=== PATIENT | male | born 1945 | race Caucasian/White ===

== ENCOUNTER 2019-08-26 18:41 | Emergency (ER) | payer MEDICARE ==
[2019-08-26 18:51] VITALS: BP 167/83
[2019-08-26] MEDS ORDERED: HYDROcod/ACETAM 5/325 MG TABLET PO STA (19:11)
[2019-08-26] MEDS ORDERED: TETANUS/DIPHTHERIA/PERTUSSIS 0.5 ML SYRINGE IM ONE (19:11)
--- NOTE | 2019-08-26 19:12 | ED Physician Documentation ---
PD HPI UPPER EXT INJURY - Stated complaint Stated Complaint: ELBOW INJURY,GLF - Chief complaint Chief Complaint: Ext Problem - History obtained from History obtained from: Patient (Trip and fall landing on his right elbow, he also has some scrapes on the left hand and left knee but those do not hurt at all. His tetanus is unknown. Denies head or neck injury. No loss of consciousness. This accident happened about 4 PM today.) Review of Systems Constitutional: reports: Reviewed and negative Cardiac: reports: Reviewed and negative Respiratory: reports: Reviewed and negative PD PAST MEDICAL HISTORY - Past Medical History Past Medical History: Yes Psych: Depression, ADD/ADHD - Past Surgical History Past Surgical History: Yes - Present Medications Home Medications: Ambulatory Orders Medication Instructions Recorded Confirmed Methylphenidate HCl 10 mg 09/03/14 09/15/14 [Methylphenidate ER] HYDROcod/ACETAM 5/325 [[place] 5/325] 1 - 2 ea PO Q6H PRN #15 tablet 01/01/16 Hydrocodone/Acetaminophen 1 - 2 each PO Q6H PRN #14 tablet 08/26/19 [Hydrocodon-Acetaminophen 5-325] - Allergies Allergies/Adverse Reactions: Allergies Allergy/AdvReac Type Severity Reaction Status Date / Time No Known Drug Allergies Allergy Verified 08/26/19 18:43 - Social History Does the pt smoke?: No Smoking Status: Never smoker Does the pt drink ETOH?: Yes Does the pt have substance abuse?: No - Immunizations Immunizations are current?: Yes Immunizations: TDAP current <10years - POLST Patient has POLST: No PD ED PE NORMAL - Vitals Vital signs reviewed: Yes - General General: Alert and oriented X 3, No acute distress - HEENT HEENT: PERRL, EOMI - Neck Neck: Supple, no meningeal sign, No bony TTP - Extremities Extremities: Other (Quite tender over the right olecranon, unable to extend it, but can bend it. Some shallow scrapes on the medial left hand and left knee without bony tenderness there.) - Neuro Neuro: Alert and oriented X 3, Normal speech Results - Vitals Vitals: Vital Signs - 24 hr 08/26/19 18:43 Temperature 36.2 C L Heart Rate 66 Respiratory 16 Rate Blood Pressure 167/83 H O2 Saturation 98 Oxygen O2 Source Room air - Rads (name of study) R elbow Radiology: EMP read contemporaneously (Nondisplaced right radial head fracture) PD MEDICAL DECISION MAKING - ED course ED course: He was ordered a sling and fitted for it but refused it based on potential cost Departure - Departure Disposition: 01 Home, Self Care Clinical Impression: Multiple abrasions, Fall from ground level Right radial head fracture Qualifiers: Encounter type: initial encounter Fracture type: closed Fracture alignment: nondisplaced Qualified Code(s): S52.124A - Nondisplaced fracture of head of right radius, initial encounter for closed fracture Condition: Good Record reviewed to determine appropriate education?: Yes Instructions: ED Fx Radial Head Follow-Up: [facility] [Provider Group] - Within 1 week Prescriptions: Hydrocodone/Acetaminophen [Hydrocodon-Acetaminophen 5-325] 1 - 2 each PO Q6H PRN #14 tablet PRN Reason: pain Comments: Note for your records that we updated your tetanus today. That should be good for 10 years unless you have a particularly bad wound. For the scrapes you can just wash with soap and water and keep them covered with a little bacitracin ointment which is available [id number] and a Band-Aid. The radial head fracture, these always heal up really well. You should follow-up with the orthopedic surgeon in about a week. Until then wear the sling for comfort. You can start gentle range of motion exercises pretty soon but do not do anything too strenuous. Call the orthopedics office tomorrow for an appointment.
--- NOTE | 2019-08-26 20:13 | XRAY Report ---
Reason: injury Procedure Date: 08/26/2019 Accession Number: [id number] / [id number] Procedure: XR - Elbow 3 View RT CPT Code: Final Report FULL RESULT: EXAM: RIGHT ELBOW RADIOGRAPHY. EXAM DATE: 08/26/2019 07:37 PM. CLINICAL HISTORY: Injury. COMPARISON: None. TECHNIQUE: 3 views. FINDINGS: Bones: Mild cortical irregularity at medial aspect of radial head, may reflect a nondisplaced fracture. Joints: A small right elbow joint effusion with elevated fat pad. Soft Tissues: Normal. No soft tissue swelling. IMPRESSION: Mild cortical irregularity at medial aspect of radial head, may reflect a nondisplaced fracture. A small elbow joint effusion. RADIA
[2019-08-26] MEDS ORDERED: HYDROcod/ACET 5/325 Prepack 4 PO STA (20:15)
== END 2019-08-26 20:26 | disposition home or self-care (01) ==
LOC: ED 18:41
DX: S52.124A Nondisplaced fracture of head of right radius, initial encounter for closed fracture (principal); S60.512A Abrasion of left hand, initial encounter; S80.212A Abrasion, left knee, initial encounter; W01.0XXA Fall on same level from slipping, tripping and stumbling without subsequent striking against object, initial encounter; Y93.01 Activity, walking, marching and hiking; Z23 Encounter for immunization
CPT/HCPCS: 73080; 90471; 90715; 99283; 99284; A9270

== ENCOUNTER 2020-01-07 16:05 | Outpatient (CLI) | payer MEDICARE | END 2020-01-07 16:06 | disposition home or self-care (01) | LOC: COV 16:05 | PROVIDERS: ATTEND Family Medicine | DX: R05 Cough (principal); M79.10 Myalgia, unspecified site; R53.83 Other fatigue; J02.9 Acute pharyngitis, unspecified; R09.81 Nasal congestion; Z20.828 Contact with and (suspected) exposure to other viral communicable diseases ==

== ENCOUNTER 2020-06-29 15:27 | Outpatient (CLI) | payer MEDICARE ==
--- NOTE | 2020-06-29 16:25 | XRAY Report ---
PROCEDURE: Lumbar Spine 2 View INDICATIONS: BACK PAIN, MYALGIA TECHNIQUE: 2 views of the lumbar spine were acquired. COMPARISON: None. FINDINGS: Bones: 5 ekh-tha-blieldp vertebrae are present. Multilevel disc space narrowing and endplate osteop hyte formation, worst at L5-S1, indicating degenerative disc disease. Facet hypertrophy throughout th e mid and lower lumbar spine. There is normal bony alignment. No vertebral body compression fracture s. No suspicious bony lesions. Soft tissues: Overlying bowel gas pattern is normal. No suspicious soft tissue calcifications. IMPRESSION: Multilevel degenerative disc and facet disease. No acute fracture. No osseous lesion. If symptoms and/or clinical suspicion for pathology continue, further assessment with repeat plain film s, or advanced imaging (e.g., CT, MRI, or bone scan) is recommended for further assessment. Reviewed by: Peewee Elizalde MD on 06/29/2020 4:24 PM PDT Approved by: Peewee Elizalde MD on 06/29/2020 4:24 PM PDT Station ID: [id number]
== END 2020-06-29 15:28 | disposition home or self-care (01) ==
LOC: DI 15:27
PROVIDERS: ATTEND Internal Medicine
DX: M47.816 Spondylosis without myelopathy or radiculopathy, lumbar region (principal); M51.36 Other intervertebral disc degeneration, lumbar region

== ENCOUNTER 2020-07-28 11:41 | Outpatient (CLI) | payer MEDICARE ==
[2020-07-28 12:08] LABS: BASOPHILS % (AUTO) 0.3 %; EOSINOPHILS # (AUTO) 0.1 10^3/uL (0.0-0.7); EOSINOPHILS % (AUTO) 1.2 %; HCT - HEMATOCRIT 42.9 % (42.0-52.0); HGB - HEMOGLOBIN 14.9 g/dL (14.0-18.0); LYMPHOCYTES # (AUTO) 1.2 10^3/uL (1.5-3.5); LYMPHOCYTES % (AUTO) 19.3 %; MEAN CORPUSCULAR HEMOGLOBIN 30.3 pg (27.0-31.0); MEAN CORPUSCULAR HGB CONC 34.7 g/dL (32.0-36.0); MEAN CORPUSCULAR VOLUME 87.4 fL (80.0-94.0); MEAN PLATELET VOLUME 9.5 fL (7.4-11.4); MONOCYTES # (AUTO) 0.6 10^3/uL (0.0-1.0); MONOCYTES % (AUTO) 9.5 %; NEUTROPHILS # (AUTO) 4.5 10^3/uL (1.5-6.6); NEUTROPHILS % (AUTO) 69.5 %; PLT - PLATELET COUNT 224 10^3/uL (130-450); RED BLOOD COUNT 4.91 10^6/uL (4.70-6.10); RED CELL DISTRIBUTION WIDTH 13.4 % (12.0-15.0); WHITE BLOOD COUNT 6.4 x10^3/uL (4.8-10.8)
[2020-07-28 12:31] LABS: ALBUMIN 4.6 g/dL (3.2-5.5); ALBUMIN/GLOBULIN RATIO 1.7 (1.0-2.2); ALKALINE PHOSPHATASE 76 IU/L (42-121); ALT ALANINE AMINOTRANSFERASE 26 IU/L (10-60); AST ASPARTATE AMINOTRANSFERASE 21 IU/L (10-42); BILIRUBIN,TOTAL 0.7 mg/dL (0.2-1.0); BUN - BLOOD UREA NITROGEN 15 mg/dL (6-20); CALCIUM 9.5 mg/dL (8.5-10.3); CARBON DIOXIDE - CO2 23 mmol/L (21-32); CHLORIDE 105 mmol/L (101-111); CHOL/HDL RATIO 6.8 (<5.0); CHOLESTEROL 284 mg/dL; CREATININE 0.8 mg/dL (0.6-1.2); GFR - MDRD 95 (>89); GLUCOSE 128 mg/dL (70-100); HDL CHOLESTEROL 42 mg/dL; LDL CHOLESTEROL,CALCULATED 171 mg/dL; LDL/HDL RATIO 4.1 (<3.6); POTASSIUM 3.8 mmol/L (3.5-5.0); SODIUM 138 mmol/L (135-145); TOTAL PROTEIN 7.3 g/dL (6.7-8.2); TRIGLYCERIDES 355 mg/dL; VLDL CHOLESTEROL 71 mg/dL
== END 2020-07-28 11:42 | disposition home or self-care (01) ==
LOC: LAB 11:41
PROVIDERS: ATTEND Internal Medicine
DX: Z00.00 Encounter for general adult medical examination without abnormal findings (principal); R03.0 Elevated blood-pressure reading, without diagnosis of hypertension
CPT/HCPCS: 36415; 80053; 80061; 83721; 85025

== ENCOUNTER 2020-11-30 19:34 | Outpatient (CLI) | payer MEDICARE | END 2020-11-30 19:35 | disposition home or self-care (01) | LOC: COV 19:34 | PROVIDERS: ATTEND Family Medicine | DX: R07.0 Pain in throat (principal); R19.7 Diarrhea, unspecified; Z20.822 Contact with and (suspected) exposure to COVID-19 ==

== ENCOUNTER 2021-02-01 11:06 | Outpatient (CLI) | payer MEDICARE ==
[2021-02-01 11:35] LABS: MUDS CUTOFF CONCENTRATIONS CUTOFF CONC BELOW:
[2021-02-01 11:48] LABS: AMPHETAMINE SCREEN,URINE NEGATIVE (NEGATIVE); BARBITURATE SCREEN,UR NEGATIVE (NEGATIVE); BENZODIAZEPINES SCREEN, URINE NEGATIVE (NEGATIVE); COCAINE SCREEN URINE NEGATIVE (NEGATIVE); METHADONE SCREEN, URINE NEGATIVE (NEGATIVE); METHAMPHETAMINES SCREEN, URINE NEGATIVE (NEGATIVE); OPIATE SCREEN, URINE NEGATIVE (NEGATIVE); OXYCODONE SCREEN, URINE NEGATIVE (NEGATIVE); PROPOXYPHENE SCREEN, URINE NEGATIVE (NEGATIVE); THC CANNABINOID SCREEN, URINE NEGATIVE (NEGATIVE); TRICYCLIC ANTIDEPRESSANT,URINE NEGATIVE (NEGATIVE)
== END 2021-02-01 11:07 | disposition home or self-care (01) ==
LOC: LAB 11:06
PROVIDERS: ATTEND Psychiatry & Neurology Psychiatry
DX: Z79.899 Other long term (current) drug therapy (principal); F90.2 Attention-deficit hyperactivity disorder, combined type; F33.1 Major depressive disorder, recurrent, moderate
CPT/HCPCS: 80306; 93005

== ENCOUNTER 2021-10-16 14:06 | Emergency (ER) | payer MEDICARE ==
[2021-10-16 14:18] VITALS: BP 158/81
[2021-10-16 14:46] LABS: BASOPHILS % (AUTO) 0.4 %; EOSINOPHILS # (AUTO) 0.1 10^3/uL (0.0-0.7); EOSINOPHILS % (AUTO) 1.4 %; HCT - HEMATOCRIT 42.7 % (42.0-52.0); HGB - HEMOGLOBIN 14.9 g/dL (14.0-18.0); LYMPHOCYTES % (AUTO) 19.5 %; MEAN CORPUSCULAR HEMOGLOBIN 30.4 pg (27.0-31.0); MEAN CORPUSCULAR HGB CONC 34.9 g/dL (32.0-36.0); MEAN CORPUSCULAR VOLUME 87.1 fL (80.0-94.0); MEAN PLATELET VOLUME 9.1 fL (7.4-11.4); MONOCYTES # (AUTO) 0.5 10^3/uL (0.0-1.0); MONOCYTES % (AUTO) 9.8 %; NEUTROPHILS # (AUTO) 3.5 10^3/uL (1.5-6.6); NEUTROPHILS % (AUTO) 68.7 %; PLT - PLATELET COUNT 239 10^3/uL (130-450); RED CELL DISTRIBUTION WIDTH 13.2 % (12.0-15.0); WHITE BLOOD COUNT 5.1 x10^3/uL (4.8-10.8)
[2021-10-16 14:47] LABS: BILIRUBIN,URINE NEGATIVE (NEGATIVE); GLUCOSE, URINE (UA) NEGATIVE (NEGATIVE); KETONES,URINE (UA) NEGATIVE (NEGATIVE); LEUKOCYTE ESTERASE, URINE NEGATIVE (NEGATIVE); NITRITE,URINE NEGATIVE (NEGATIVE); OCCULT BLOOD,URINE TRACE-INTA (NEGATIVE); PH,URINE 5.5 PH (5.0-7.5); PROTEIN,URINE NEGATIVE (NEGATIVE); UROBILINOGEN,URINE 0.2 (NORMAL) E.U./dL (NORMAL)
[2021-10-16 14:55] LABS: CLARITY,URINE CLEAR (CLEAR)
[2021-10-16 14:56] LABS: ALBUMIN 4.5 g/dL (3.2-5.5); ALBUMIN/GLOBULIN RATIO 1.6 (1.0-2.2); BILIRUBIN,TOTAL 0.5 mg/dL (0.2-1.0); CALCIUM 9.2 mg/dL (8.5-10.3); CREATININE 0.9 mg/dL (0.6-1.2); TOTAL PROTEIN 7.3 g/dL (6.7-8.2)
--- NOTE | 2021-10-16 15:24 | ED Physician Documentation ---
History of Present Illness - Stated complaint Stated Complaint: MALE - Chief complaint Chief Complaint: Abd Pain - Additonal information Additional information: 75-year-old male presents emergency department for evaluation of acute right flank pain with radiation to his bladder and then testicle. Symptoms began about 2-1/2 hours prior to arrival. Patient did report some mild blood-tinged urine earlier this AM. No fevers or dysuria. Reports that when presented initially to the emergency department he was very uncomfortable though without any intervention it has resolved. Patient is declining blood thinners at this time Past medical history was most significant for prostatectomy. He takes bupropion and trazodone only. No blood thinners. Review of Systems Constitutional: denies: Fever, Chills Ears: reports: Reviewed and negative Cardiac: reports: Reviewed and negative Respiratory: reports: Reviewed and negative GI: reports: Abdominal Pain. denies: Nausea, Vomiting : reports: Hematuria. denies: Frequency Skin: reports: Reviewed and negative Musculoskeletal: reports: Reviewed and negative Neurologic: reports: Reviewed and negative PD PAST MEDICAL HISTORY - Past Medical History Psych: Depression, ADD/ADHD - Past Surgical History Past Surgical History: Yes - Present Medications Home Medications: Ambulatory Orders Medication Instructions Recorded Confirmed Methylphenidate HCl 10 mg 09/03/14 09/15/14 [Methylphenidate ER] HYDROcod/ACETAM 5/325 [[place] 5/325] 1 - 2 ea PO Q6H PRN #15 tablet 01/01/16 Hydrocodone/Acetaminophen 1 - 2 each PO Q6H PRN #14 tablet 08/26/19 [Hydrocodon-Acetaminophen 5-325] - Allergies Allergies/Adverse Reactions: Allergies Allergy/AdvReac Type Severity Reaction Status Date / Time No Known Drug Allergies Allergy Verified 08/26/19 18:43 - Social History Does the pt smoke?: No Smoking Status: Never smoker Does the pt drink ETOH?: Yes Does the pt have substance abuse?: No - Immunizations Immunizations are current?: Yes Immunizations: TDAP current <10years - POLST Patient has POLST: No PD ED PE NORMAL - General General: Alert and oriented X 3, No acute distress, Well developed/nourished - HEENT HEENT: Atraumatic, Moist mucous membranes - Neck Neck: Supple, no meningeal sign, No adenopathy - Cardiac Cardiac: RRR, No murmur - Respiratory Respiratory: No respiratory distress, Clear bilaterally - Abdomen Abdomen: Normal bowel sounds, Soft, Non tender (Mild tenderness of the right flank. No CVA tenderness. Negative McBurney's. 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 Eye Opening: Spontaneous Motor: Obeys Commands Verbal: Oriented GCS Score: 15 - Psych Psych: Normal mood Results - Vitals Vitals: Vital Signs - 24 hr 10/16/21 10/16/21 14:16 14:18 Temperature 36.9 C 36.9 C Heart Rate 80 80 Respiratory 18 18 Rate Blood Pressure 158/81 H 158/81 H O2 Saturation 99 99 Oxygen O2 Source Room air - Labs Labs: Laboratory Tests 10/16/21 10/16/21 10/16/21 14:35 14:38 14:38 WBC 5.1 RBC 4.90 Hgb 14.9 Hct 42.7 MCV 87.1 MCH 30.4 MCHC 34.9 RDW 13.2 Plt Count 239 MPV 9.1 Neut # (Auto) 3.5 Lymph # (Auto) 1.0 L [place] # (Auto) 0.5 Eos # (Auto) 0.1 Baso # (Auto) 0.0 Absolute Nucleated RBC 0.00 Nucleated RBC % 0.0 Sodium 137 Potassium 4.0 Chloride 102 Carbon Dioxide 26 Anion Gap 9.0 BUN 17 Creatinine 0.9 Estimated GFR (MDRD) 83 L Glucose 138 H Calcium 9.2 Total Bilirubin 0.5 AST 19 ALT 20 Alkaline Phosphatase 71 Total Protein 7.3 Albumin 4.5 Globulin 2.8 Albumin/Globulin Ratio 1.6 Lipase 39 Urine Color YELLOW Urine Clarity CLEAR Urine pH 5.5 Ur Specific [place] 1.025 Urine Protein NEGATIVE Urine Glucose (UA) NEGATIVE Urine Ketones NEGATIVE Urine Occult Blood TRACE-INTA Urine Nitrite NEGATIVE Urine Bilirubin NEGATIVE Urine Urobilinogen 0.2 (NORMAL) Ur Leukocyte Esterase NEGATIVE Ur Microscopic Review NOT INDICATED Urine Culture Comments NOT INDICATED - Rads (name of study) CT abd Radiology: Final report received (No acute abdominal or pelvic abnormality. No nephroureterolithiasis) PD MEDICAL DECISION MAKING - ED course Complexity details: reviewed results, re-evaluated patient, considered differential, d/w patient ED course: 74-year-old male presents emergency department for evaluation of acute right flank pain with radiation to the bladder and then the right testicle. He does have a remote history of renal colic. His screening labs today are essentially unremarkable. Urine shows no signs of infection or hematuria. Screening CT did not show any obvious nephroureterolithiasis. His history is quite suggestive of passing a small stone. Clinically there is nothing to suggest acute appendicitis bowel obstruction or diverticulitis. Patient is encouraged ibuprofen and Tylenol at home for discomfort. On reevaluation he is free of pain. Emergent return precautions discussed for w orsening symptoms. Departure - Departure Disposition: Home, Self Care Clinical Impression: Right flank pain Condition: Stable Record reviewed to determine appropriate education?: Yes Comments: Skip arguello are seen today in the emergency department because you developed pain in your right flank that radiated to your bladder and right testicle. Your story is quite suggestive of kidney or ureter colic. Your screening labs, renal function and urine are all essentially normal without findings of dysfunction or infection. We did do a CT of your abdomen and do not find any obvious stones or worrisome surgical problems. The story is quite suggestive that you are passing a kidney stone it may have been too small for us to see on CAT scan. In general I encourage you to take Tylenol and ibuprofen [id number] for discomfort. Please discuss this ED visit with your primary care provider. If your symptoms are worsening, you develop fevers have uncontrolled vomiting then please return immediately to the ER for second evaluation.
--- NOTE | 2021-10-16 16:33 | CT Report ---
PROCEDURE: Abdomen/Pelvis WO INDICATIONS: Right flank kidney and bladder pain TECHNIQUE: Noncontrast 5 mm thick sections acquired from the diaphragms to the symphysis. 5 mm coronal and sagi ttal reformats were then performed. For radiation dose reduction, the following was used: automated exposure control, adjustment of mA and/or kV according to patient size. COMPARISON: None. FINDINGS: Image quality: Excellent. ABDOMEN: Lung bases: Lung bases are clear. Heart size is normal. Solid organs: Liver and spleen are normal in size. Gallbladder is normal. Pancreas is normal in co ntours. No adrenal nodules. Kidneys are normal in size, without hydronephrosis or nephrolithiasis. Peritoneum and bowel: Unenhanced bowel loops demonstrate normal wall thickness and caliber. No free fluid or air. Nodes and vessels: No retroperitoneal or mesenteric adenopathy by size criteria. Aorta and inferior vena cava are normal in caliber. Miscellaneous: No ventral hernias. PELVIS: Genitourinary: Bladder wall thickness is normal. Multiple surgical clips are seen in the pelvis con sistent with prior prostatectomy. Miscellaneous: No inguinal hernias or adenopathy. Bones: No suspicious bony lesions. No vertebral body compression fractures. IMPRESSION: 1. No acute abdominal or pelvic abnormality. 2. No nephroureterolithiasis. Reviewed by: Sebastian Fernandez on 10/16/2021 3:32 PM AKJOSE Approved by: Sebastian Fernandez on 10/16/2021 3:32 PM AKDT Station ID: [id number]
== END 2021-10-16 17:04 | disposition home or self-care (01) ==
LOC: ED 14:06
DX: R10.9 Unspecified abdominal pain (principal)
CPT/HCPCS: 36415; 80053; 81001; 81003; 83690; 85025; 87086; 99282; 99284

== ENCOUNTER 2022-07-14 11:50 | Outpatient (CLI) | payer MEDICARE ==
[2022-07-14 18:03] LABS: BASOPHILS % (AUTO) 0.3 %; EOSINOPHILS # (AUTO) 0.1 10^3/uL (0.0-0.7); EOSINOPHILS % (AUTO) 0.9 %; HCT - HEMATOCRIT 46.1 % (42.0-52.0); HGB - HEMOGLOBIN 15.1 g/dL (14.0-18.0); LYMPHOCYTES % (AUTO) 14.5 %; MEAN CORPUSCULAR HEMOGLOBIN 29.7 pg (27.0-31.0); MEAN CORPUSCULAR HGB CONC 32.8 g/dL (32.0-36.0); MEAN CORPUSCULAR VOLUME 90.7 fL (80.0-94.0); MEAN PLATELET VOLUME 10.3 fL (7.4-11.4); MONOCYTES # (AUTO) 0.6 10^3/uL (0.0-1.0); MONOCYTES % (AUTO) 9.4 %; NEUTROPHILS % (AUTO) 74.8 %; PLT - PLATELET COUNT 242 10^3/uL (130-450); RED BLOOD COUNT 5.08 10^6/uL (4.70-6.10); RED CELL DISTRIBUTION WIDTH 13.6 % (12.0-15.0); WHITE BLOOD COUNT 6.7 x10^3/uL (4.8-10.8)
[2022-07-14 18:28] LABS: THYROID STIMULATING HORMONE 1.04 uIU/mL (0.34-5.60)
[2022-07-14 18:29] LABS: ALBUMIN 4.4 g/dL (3.2-5.5); ALBUMIN/GLOBULIN RATIO 1.4 (1.0-2.2); ALKALINE PHOSPHATASE 68 IU/L (42-121); ALT ALANINE AMINOTRANSFERASE 28 IU/L (10-60); AST ASPARTATE AMINOTRANSFERASE 23 IU/L (10-42); BILIRUBIN,TOTAL 0.6 mg/dL (0.2-1.0); BUN - BLOOD UREA NITROGEN 16 mg/dL (6-20); CALCIUM 9.5 mg/dL (8.5-10.3); CARBON DIOXIDE - CO2 29 mmol/L (21-32); CHLORIDE 109 mmol/L (101-111); CHOL/HDL RATIO 6.6 (<5.0); CHOLESTEROL 264 mg/dL; CREATININE 0.8 mg/dL (0.6-1.2); GFR - MDRD 94 (>89); GLUCOSE 103 mg/dL (70-100); HDL CHOLESTEROL 40 mg/dL; LDL CHOLESTEROL,CALCULATED 181 mg/dL; LDL/HDL RATIO 4.5 (<3.6); POTASSIUM 4.4 mmol/L (3.5-5.0); SODIUM 141 mmol/L (135-145); TOTAL PROTEIN 7.5 g/dL (6.7-8.2); TRIGLYCERIDES 214 mg/dL; VLDL CHOLESTEROL 43 mg/dL
== END 2022-07-14 11:51 | disposition home or self-care (01) ==
LOC: LAB.N 11:50
PROVIDERS: ATTEND Nurse Practitioner
DX: E78.5 Hyperlipidemia, unspecified (principal); I48.0 Paroxysmal atrial fibrillation; R53.83 Other fatigue
CPT/HCPCS: 36415; 80053; 80061; 83721; 84443; 85025

== ENCOUNTER 2022-08-25 14:18 | Outpatient (CLI) | payer MEDICARE | END 2022-08-25 14:19 | disposition home or self-care (01) | LOC: MAC.MOP 14:18 | PROVIDERS: ATTEND Nurse Practitioner | DX: R00.2 Palpitations (principal) | CPT/HCPCS: 93246 ==

== ENCOUNTER 2022-09-14 10:30 | Outpatient (CLI) | payer MEDICARE | END 2022-09-14 10:31 | disposition home or self-care (01) | LOC: MAC.INF 10:30 | PROVIDERS: ATTEND Nurse Practitioner | DX: I45.4 Nonspecific intraventricular block (principal); I47.1 Supraventricular tachycardia; I47.20 Ventricular tachycardia, unspecified; I49.8 Other specified cardiac arrhythmias; I49.1 Atrial premature depolarization; I49.3 Ventricular premature depolarization | CPT/HCPCS: 93248 ==

== ENCOUNTER 2022-09-23 09:17 | Outpatient (CLI) | payer MEDICARE | END 2022-09-23 23:59 | disposition short-term general hospital (02) | LOC: EMS 09:17 | DX: S43.005A Unspecified dislocation of left shoulder joint, initial encounter (principal); W01.0XXA Fall on same level from slipping, tripping and stumbling without subsequent striking against object, initial encounter; Y93.01 Activity, walking, marching and hiking; Y92.219 Unspecified school as the place of occurrence of the external cause | CPT/HCPCS: A0425; A0429 ==